=== PATIENT | female | born 1935 | race African-American/Black ===

== ENCOUNTER 2017-07-02 02:54 | Emergency (ER) | payer MEDICARE, MEDICAID ==
[~2017-07-02] VITALS: Ht 12.7 cm; Wt 39.5 kg
[~2017-07-02 02:54] MED LIST: ALBU1.25 NEB; ALLO300T PO; AMLO5TAB2; ASPI-630 PO; ASPI325T11 PO; ATOR20TA PO; ENAL10TA; ESCITALOPRAM OX10 MG PO; HYDR-2679 PO; PROAIR HFA8.5 GM IH; TIOT18CA IH
[2017-07-02] MEDS ORDERED: ONDANSETRON PF 4 MG/2 ML VIAL. IV ONE (05:00)
[2017-07-02] MEDS ORDERED: IV NORMAL SALINE 1000ML BAG 1,000 ML IV SCH (05:00)
[2017-07-02] MEDS ORDERED: CLINDAMYCIN 600MG PREMIX 50 ML IV ONE (05:00)
[2017-07-02 05:12] LABS: BASO % 0 % (0-3); EOS % 1 % (0-3); HEMOGLOBIN 12.9 g/dL (12.0-15.5); LYMPH # 1.7 x10^3/uL (1.0-4.8); LYMPH % 11 % (24-48); MEAN CORPUSCULAR HEMOGLOBIN 29 pg (25-35); MEAN CORPUSCULAR HGB CONC 34 g/dL (31-37); MEAN CORPUSCULAR VOLUME 87 fL (79-100); MONO % 10 % (0-9); NEUT % 78 % (31-73); PLATELET COUNT 259 x10^3/uL (140-400); RED CELL DISTRIBUTION WIDTH 15.1 % (11.5-14.5); WHITE BLOOD COUNT 16.1 x10^3/uL (4.0-11.0)
[2017-07-02 05:21] LABS: CREATININE 1.5 mg/dL (0.6-1.0); GFR 40.4; POTASSIUM 4.1 mmol/L (3.5-5.1)
--- NOTE | 2017-07-02 05:23 | RAD ---
INDICATION: pt.fell; chin pain and laceration COMPARISON: August 25, 2015 TECHNIQUE: Axial CT images obtained through the head, face and cervical spine without intravenous contrast. Coronal and sagittal reformats processed of cervical spine. One or more of the following individualized dose reduction techniques were utilized for this examination: 1. Automated exposure control; 2. Adjustment of the mA and/or kV according to patient size; 3. Use of iterative reconstruction technique. FINDINGS: Head: No intracranial hemorrhage. No midline shift. Basal cisterns patents. Ventricles and sulci are globally prominent No acute osseous abnormality. Low-attenuation of white matter. Encephalomalacia right greater than left temporal region again seen. Cervical: No definite acute fracture. No significant malalignment. No evidence of perivertebral hematoma. Degenerative changes are identified with osteophyte formation at the vertebral body endplates as well as facet hypertrophy. Mild superior endplate loss of height of T4 vertebral body. Facial: Left mandibular fracture identified just inferior to the left temporomandibular joint with mild displacement. Malalignment at left temporomandibular joint with mandibular condyle displaced anteriorly. Additional fracture through anterior aspect of the right mandible extending through the base of the teeth. There is adjacent soft tissue hematoma. There is odontogenic disease suspected. Nasal septal bowing to the right. IMPRESSION: No acute intracranial hemorrhage. Low-attenuation is seen within the white matter. Nonspecific but can be seen with chronic small vessel ischemic disease. No definite acute fracture or dislocation of the cervical spine. Mild loss of height of the T4 vertebral body of unknown age. Would correlate with pain in the region to ensure that this is not acute. Left-sided mandibular fracture is identified just inferior to the left temporomandibular joint. There is also a lucency through the anterior aspect of the right mandible which could be secondary to an additional mildly displaced fracture. There is also a lucency seen of the left maxilla at the base of the teeth which could be secondary to an additional mildly displaced fracture. Mild lucencies at lung apices. Would correlate for possible causes such as emphysema. There is also possible groundglass opacity in the right upper lung. This is only partially seen with causes such as airway inflammation within the differential but nonemergent follow-up exam could be obtained to ensure no increase in this finding. Electronically signed by: Jesus Shipman MD (07/02/2017 5:19 AM) [facility]
[2017-07-02 05:29] LABS: ALBUMIN 3.4 g/dL (3.4-5.0); ALBUMIN/GLOBULIN RATIO 0.8 (1.0-1.7); TOTAL BILIRUBIN 0.4 mg/dL (0.2-1.0); TOTAL PROTEIN 7.7 g/dL (6.4-8.2)
[2017-07-02 05:40] LABS: INR 1.1 (0.8-1.1); PROTHROMBIN TIME PATIENT 13.3 SEC (11.7-14.0)
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
[2017-07-02 06:14] VITALS: BP 123/63
[2017-07-02 09:34] LABS: % EOS 2 % (0-5)
[2017-07-02 09:36] LABS: PLT ESTIMATE ADEQUATE (ADEQUATE)
== END 2017-07-02 06:34 | disposition short-term general hospital (02) ==
LOC: ER 03:37
DX: S02.69XB Fracture of mandible of other specified site, initial encounter for open fracture (principal); I12.9 Hypertensive chronic kidney disease with stage 1 through stage 4 chronic kidney disease, or unspecified chronic kidney disease; N18.3 Chronic kidney disease, stage 3 (moderate); M10.9 Gout, unspecified; J44.9 Chronic obstructive pulmonary disease, unspecified; F10.10 Alcohol abuse, uncomplicated; W18.39XA Other fall on same level, initial encounter; Y93.89 Activity, other specified; Y99.8 Other external cause status; Y92.89 Other specified places as the place of occurrence of the external cause
CPT/HCPCS: 36415; 70450; 70486; 72125; 80053; 85007; 85025; 85610; 85730; 96365; 96375; 99285; G0480; J2405; J3490; J7030

== ENCOUNTER 2017-12-10 19:20 | Inpatient (IN) | payer MEDICARE, MEDICAID ==
[2017-12-10 19:56] LABS: ADD MAN DIFF? NO
[2017-12-10 20:01] LABS: BASO # 0.1 x10^3/uL (0.0-0.2); BASO % 1 % (0-3); EOS # 0.4 x10^3/uL (0.0-0.7); EOS % 3 % (0-3); HEMATOCRIT 39.8 % (36.0-47.0); HEMOGLOBIN 12.7 g/dL (12.0-15.5); LYMPH # 2.7 x10^3/uL (1.0-4.8); LYMPH % 24 % (24-48); MEAN CORPUSCULAR HEMOGLOBIN 28 pg (25-35); MEAN CORPUSCULAR HGB CONC 32 g/dL (31-37); MEAN CORPUSCULAR VOLUME 86 fL (79-100); MONO # 1.2 x10^3/uL (0.0-1.1); MONO % 10 % (0-9); NEUT # 6.9 x10^3uL (1.8-7.7); NEUT % 62 % (31-73); PLATELET COUNT 273 x10^3/uL (140-400); RED BLOOD COUNT 4.61 x10^6/uL (3.50-5.40); RED CELL DISTRIBUTION WIDTH 13.6 % (11.5-14.5); WHITE BLOOD COUNT 11.2 x10^3/uL (4.0-11.0)
[2017-12-10 20:14] LABS: ANION GAP 10 (6-14); BLOOD UREA NITROGEN 14 mg/dL (7-20); BUN/CREATININE RATIO 12 (6-20); CALCIUM 9.4 mg/dL (8.5-10.1); CARBON DIOXIDE 26 mmol/L (21-32); CHLORIDE 101 mmol/L (98-107); CREATININE 1.2 mg/dL (0.6-1.0); GFR 52.2; GLUCOSE 105 mg/dL (70-99); POTASSIUM 4.6 mmol/L (3.5-5.1); SODIUM 137 mmol/L (136-145)
[2017-12-10 20:21] LABS: ALBUMIN 3.2 g/dL (3.4-5.0); ALBUMIN/GLOBULIN RATIO 0.6 (1.0-1.7); ALK PHOS 189 U/L (46-116); ALT (SGPT) 11 U/L (14-59); AST (SGOT) 18 U/L (15-37); TOTAL BILIRUBIN 0.3 mg/dL (0.2-1.0); TOTAL PROTEIN 8.2 g/dL (6.4-8.2)
[2017-12-10] MEDS: levETIRAcetam 500 MG TABLET PO (21:20)
[2017-12-10] MEDS: levETIRAcetam 500 MG in IV DEXTROSE 5% 100 ML IV (23:11)
[2017-12-11] MEDS: levETIRAcetam 500 MG TABLET PO ×2 (08:26→21:53)
[2017-12-11] MEDS ORDERED: diazePAM 5 MG TABLET PO (15:15)
[2017-12-12] MEDS: levETIRAcetam 500 MG TABLET PO ×2 (08:27→21:01)
[2017-12-12] MEDS: ACETAMINOPHEN 325 MG TABLET. PO (12:13)
[2017-12-12] MEDS: diazePAM 5 MG TABLET PO (13:16)
[2017-12-13] MEDS: levETIRAcetam 500 MG TABLET PO ×2 (08:07→19:53)
[2017-12-13] MEDS: diazePAM 5 MG TABLET PO (11:44)
[2017-12-13] MEDS: GADOBUTROL 7.5 MMOL/7.5 ML VIAL IV (12:45)
[2017-12-13] MEDS: ACETAMINOPHEN 325 MG TABLET. PO (19:53)
[2017-12-14] MEDS: levETIRAcetam 500 MG TABLET PO (09:24)
[2017-12-14] MEDS: ACETAMINOPHEN 325 MG TABLET. PO (10:39)
[2017-12-14] MEDS: diazePAM 5 MG TABLET PO (14:40)
[2017-12-14] MEDS: GADOBUTROL 7.5 MMOL/7.5 ML VIAL IV (15:07)
== END 2017-12-14 16:15 | DRG 100 ==
LOC: ER 19:20 → 6 SOUTH 20:40
DX: G40.89 Other seizures (principal); G93.6 Cerebral edema; E44.1 Mild protein-calorie malnutrition; Z68.1 Body mass index [BMI] 19.9 or less, adult; F03.90 Unspecified dementia, unspecified severity, without behavioral disturbance, psychotic disturbance, mood disturbance, and anxiety; G93.89 Other specified disorders of brain; N18.3 Chronic kidney disease, stage 3 (moderate); M10.9 Gout, unspecified; E78.00 Pure hypercholesterolemia, unspecified; F17.210 Nicotine dependence, cigarettes, uncomplicated; I12.9 Hypertensive chronic kidney disease with stage 1 through stage 4 chronic kidney disease, or unspecified chronic kidney disease; E78.5 Hyperlipidemia, unspecified; M85.80 Other specified disorders of bone density and structure, unspecified site; Z86.73 Personal history of transient ischemic attack (TIA), and cerebral infarction without residual deficits; Z87.442 Personal history of urinary calculi
CPT/HCPCS: 36415; 70450; 70551; 70552; 73502; 80053; 85025; 92610-GN; 93306; 93880; 95816; 96374; 97163-GP; 97166-GO; 97530-GP; 97535-GO; 99285; 99285-25; A9585; J1953; J2060

== ENCOUNTER 2018-04-07 14:44 | Emergency (ER) | payer MEDICARE, OTHER ==
[2018-04-07] MEDS: diazePAM 5 MG TABLET PO (15:01)
== END 2018-04-07 17:30 | disposition home or self-care (01) ==
LOC: ER 14:44
DX: R56.9 Unspecified convulsions (principal); E78.00 Pure hypercholesterolemia, unspecified; I10 Essential (primary) hypertension; F10.20 Alcohol dependence, uncomplicated; Z87.442 Personal history of urinary calculi
CPT/HCPCS: 99284